=== PATIENT | female | born 1945 | race Caucasian/White ===

== ENCOUNTER 2017-03-14 13:30 | Outpatient (CLI) | payer MEDICARE, OTHER | END 2017-03-14 23:59 | disposition home or self-care (01) | LOC: WOU 13:30 | PROVIDERS: ATTEND Podiatrist Foot & Ankle Surgery | DX: I89.0 Lymphedema, not elsewhere classified (principal); I87.9 Disorder of vein, unspecified; Z86.718 Personal history of other venous thrombosis and embolism; Z79.82 Long term (current) use of aspirin; E66.9 Obesity, unspecified; Z68.41 Body mass index [BMI] 40.0-44.9, adult; G47.33 Obstructive sleep apnea (adult) (pediatric); L03.115 Cellulitis of right lower limb; L97.829 Non-pressure chronic ulcer of other part of left lower leg with unspecified severity; L97.819 Non-pressure chronic ulcer of other part of right lower leg with unspecified severity; G62.9 Polyneuropathy, unspecified; Z87.891 Personal history of nicotine dependence; E03.9 Hypothyroidism, unspecified; Z79.899 Other long term (current) drug therapy; Z96.641 Presence of right artificial hip joint; I10 Essential (primary) hypertension; M79.7 Fibromyalgia | CPT/HCPCS: G0463 ==

== ENCOUNTER 2017-03-28 12:50 | Outpatient (CLI) | payer MEDICARE, OTHER | END 2017-03-28 23:59 | disposition home or self-care (01) | LOC: WOU 12:50 | PROVIDERS: ATTEND Podiatrist Foot & Ankle Surgery | DX: I89.0 Lymphedema, not elsewhere classified (principal); I83.893 Varicose veins of bilateral lower extremities with other complications; L60.3 Nail dystrophy | CPT/HCPCS: G0463 ==

== ENCOUNTER 2017-05-02 08:50 | Outpatient (CLI) | payer MEDICARE, OTHER | END 2017-05-02 23:59 | disposition home or self-care (01) | LOC: WOU 08:50 | PROVIDERS: ATTEND Podiatrist Foot & Ankle Surgery | DX: I89.0 Lymphedema, not elsewhere classified (principal); I83.893 Varicose veins of bilateral lower extremities with other complications; B35.1 Tinea unguium; E11.9 Type 2 diabetes mellitus without complications; Z86.718 Personal history of other venous thrombosis and embolism; Z79.84 Long term (current) use of oral hypoglycemic drugs; Z79.82 Long term (current) use of aspirin; I25.10 Atherosclerotic heart disease of native coronary artery without angina pectoris | CPT/HCPCS: G0463 ==

== ENCOUNTER 2017-05-15 09:00 | Outpatient (CLI) | payer MEDICARE, OTHER | END 2017-05-15 23:59 | disposition home or self-care (01) | LOC: WOU 09:00 | PROVIDERS: ATTEND Podiatrist Foot & Ankle Surgery | DX: I70.223 Atherosclerosis of native arteries of extremities with rest pain, bilateral legs (principal); R60.0 Localized edema | CPT/HCPCS: 93970-TC ==

== ENCOUNTER 2017-05-16 08:54 | Outpatient (CLI) | payer MEDICARE, OTHER | END 2017-05-16 23:59 | disposition home or self-care (01) | LOC: WOU 08:54 | PROVIDERS: ATTEND Podiatrist Foot & Ankle Surgery | DX: I89.0 Lymphedema, not elsewhere classified (principal); L85.3 Xerosis cutis; L91.9 Hypertrophic disorder of the skin, unspecified; B35.1 Tinea unguium; I87.2 Venous insufficiency (chronic) (peripheral); E11.9 Type 2 diabetes mellitus without complications; I25.10 Atherosclerotic heart disease of native coronary artery without angina pectoris; Z86.718 Personal history of other venous thrombosis and embolism; Z79.82 Long term (current) use of aspirin | CPT/HCPCS: G0463 ==

== ENCOUNTER 2017-05-22 14:01 | Outpatient (CLI) | payer MEDICARE, OTHER | END 2017-05-22 23:59 | disposition home or self-care (01) | LOC: VASLAB 14:01 | PROVIDERS: ATTEND Surgery Vascular Surgery | DX: I87.323 Chronic venous hypertension (idiopathic) with inflammation of bilateral lower extremity (principal); M79.671 Pain in right foot; M79.672 Pain in left foot | CPT/HCPCS: G0463 ==

== ENCOUNTER 2017-05-23 10:07 | Outpatient (CLI) | payer MEDICARE, OTHER | END 2017-05-23 23:59 | disposition home or self-care (01) | LOC: WOU 10:07 | PROVIDERS: ATTEND Podiatrist Foot & Ankle Surgery | DX: I87.8 Other specified disorders of veins (principal); I89.0 Lymphedema, not elsewhere classified; B35.1 Tinea unguium; Z86.718 Personal history of other venous thrombosis and embolism; E11.9 Type 2 diabetes mellitus without complications; I25.10 Atherosclerotic heart disease of native coronary artery without angina pectoris; Z79.84 Long term (current) use of oral hypoglycemic drugs | CPT/HCPCS: G0463 ==